=== PATIENT | male | born 2000 | race Caucasian/White ===

== ENCOUNTER 2021-02-10 14:49 | Emergency (ER) | payer SELFPAY ==
[~2021-02-10] VITALS: Ht 185.4 cm; Wt 102.1 kg
[2021-02-10] MEDS ORDERED: HYDROCODONE/APAP 5-325MG TABLET PO ONE (15:15)
[2021-02-10] MEDS ORDERED: HYDROCODONE/APAP 5-325MG TABLET ONE ×2 (15:23→15:25)
[2021-02-10] MEDS ORDERED: HYDR-3972 PO (15:49)
--- NOTE | 2021-02-10 16:34 | NUR ---
PT WAS EVALUATED BY DR PUENTE. PT WAS D/C'd TO HOME. D/C INSTRUCTIONS GIVEN TO THE PT BY DR PUENTE. GAIT IS STABLE. PT DENIES PAIN.
[2021-02-10 16:38] VITALS: BP 128/81
== END 2021-02-10 16:38 | disposition home or self-care (01) ==
LOC: ER 15:07
DX: S92.355A Nondisplaced fracture of fifth metatarsal bone, left foot, initial encounter for closed fracture (principal); W05.1XXA Fall from non-moving nonmotorized scooter, initial encounter; Y93.89 Activity, other specified; Y92.89 Other specified places as the place of occurrence of the external cause
CPT/HCPCS: 73610; 73630; A4663